=== PATIENT | female | born 1945 | race Caucasian/White ===

== ENCOUNTER → 2016-10-21 | Outpatient (CLI) | payer MEDICARE ==
--- NOTE | 2016-10-23 08:04 | MM ---
Reason for exam: screening (asymptomatic). Last mammogram was performed 1 year ago. History: Patient is postmenopausal. Family history of premenopausal breast cancer in sister. Benign cyst aspiration, March 15, 1997. Physical Findings: A clinical breast exam by your physician is recommended on an annual basis and results should be correlated with mammographic findings. MG 3D Screening Mammo W/Cad Bilateral CC and MLO view(s) were taken. Prior study comparison: October 19, 2015, bilateral MG screening mammo w CAD. October 17, 2014, bilateral MG screening mammo w CAD. October 04, 2013, bilateral digital screening mammo w/CAD. The breast tissue is heterogeneously dense. This may lower the sensitivity of mammography. There is chronic nodularity in the left breast. No significant changes when compared with prior studies. ASSESSMENT: Negative, BI-RAD 1 RECOMMENDATION: Routine screening mammogram of both breasts in 1 year.
== END | disposition home or self-care (01) ==
LOC: RADMAMWWP 06:59
PROVIDERS: ATTEND Internal Medicine
DX: Z12.31 Encounter for screening mammogram for malignant neoplasm of breast (principal)
CPT/HCPCS: 77063; G0202

== ENCOUNTER → 2017-09-05 | Outpatient (CLI) | payer MEDICARE ==
--- NOTE | 2017-09-05 08:04 | US ---
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 GLAND SIZE: Right Lobe: 4.6 x 2.3 x 2.2 cm Overall Parenchyma: homogenous Left Lobe: Surgically absent Isthmus Thickness: 0.2 cm NODULES RIGHT: # of nodules measured on right: 2 1. 1.7 X 1.9 x 1.8 cm hypoechoic mixed nodule at the mid pole with well-defined margins; . This no dule is wider than tall and shows intranodular vascularity. Prior size: 2.9 x 1.9 x 2.1 cm 2. 1.3 X 0.7 x 0.7 cm hypoechoic cystic nodule at the lower pole with well-defined margins; . This nodule is wider than tall and shows no intranodular vascularity. Prior size: No previous LEFT: # of nodules measured on left: 0 ISTHMUS: # of nodules measured in the isthmus: 0 Bilateral neck scanned, no evidence of lymphadenopathy. IMPRESSION: Nonspecific nodularity right thyroid lobe. New nodule lower pole as discussed above.
== END | disposition home or self-care (01) ==
LOC: RADUSWWP 07:27
PROVIDERS: ATTEND Internal Medicine
DX: E04.1 Nontoxic single thyroid nodule (principal)
CPT/HCPCS: 76536

== ENCOUNTER → 2017-10-22 | Outpatient (CLI) | payer MEDICARE ==
--- NOTE | 2017-10-22 19:02 | BD ---
EXAMINATION TYPE: MG DEXA axial skeleton. DATE OF EXAM: 10/22/2017 CLINICAL HISTORY: 72-year-old female osteoporosis Height: 63.25 Weight: 203 FRAX RISK QUESTIONS: Alcohol (3 or more units per day): no Family History (Parent hip fracture): yes, mother Glucocorticoids (More than 3mos): no (Ex: prednisone, prednisolone, methylprednisolone, dexamethasone, and hydrocortisone). History of Fracture in Adulthood: no Secondary Osteoporosis: 1. Type 1 Diabetes: no 2. Hyperthyroidism: no 3. Menopause before 45: no 4. Malnutrition: no 5. Chronic liver disease: no Rheumatoid Arthritis: no Current Tobacco Use: no RISK FACTORS HISTORY OF: Family History of Osteoporosis: no Active: no Diet low in dairy products/other sources of calcium: several servings a week Postmenopausal woman: yes Take estrogen and/or progesterone medications: no Lost more than 2 inches in height since high school: yes Frequent falls: no Poor Health: no Hyperparathyroidism: no Adrenal Insufficiency: no MEDICATIONS: Prednisone or other steroids: no Thyroid Medications: no Osteoporosis Medications: no Additional Medications: blood pressure meds Additional History: EXAM MEASUREMENTS: Bone mineral densitometry was performed using the [employer] System. Bone mineral density as measured about the Lumbar spine is: ----- L1-L4(G/cm2): 1.354 T Score Values are as follows: ----- L2: 0.7 ----- L3: 1.9 ----- L4: 2.7 ----- L1-L4: 1.5 Bone mineral density has: Increased 2.9% since study of: 10/19/2015 Bone mineral density about the R hip (g/cm2): 0.919 Bone mineral density about the L hip (g/cm2): 0.886 T Score values are as follows: -----R Neck: -0.9 -----L Neck: -1.1 -----R Total: 0.1 -----L Total: -1.1 Bone mineral density has: Decreased -1.3% since study of: 10/19/2015 IMPRESSION: Osteopenia (T Score between -2.5 and -1). There is slightly increased risk of fracture and the patient may be considered for treatment. Re-Screen 2-5 years. NOTE: T-SCORE=SD OF THE YOUNG ADULT MEAN.
--- NOTE | 2017-10-23 10:58 | MM ---
Reason for exam: screening (asymptomatic). Last mammogram was performed 1 year ago. History: Patient is postmenopausal. Family history of premenopausal breast cancer in sister. Benign cyst aspiration, March 15, 1997. Physical Findings: A clinical breast exam by your physician is recommended on an annual basis and results should be correlated with mammographic findings. MG 3D Screening Mammo W/Cad Bilateral CC and MLO view(s) were taken. Prior study comparison: October 21, 2016, bilateral MG 3d screening mammo w/cad. October 19, 2015, bilateral MG screening mammo w CAD. The breast tissue is extremely dense which could obscure a lesion on mammography. Finding: There are typically benign calcifications in both breasts. No significant changes in finding since October 21, 2016 and October 19, 2015. ASSESSMENT: Benign, BI-RAD 2 RECOMMENDATION: Routine screening mammogram of both breasts in 1 year.
== END | disposition home or self-care (01) ==
LOC: RADMAMWWP 06:56
PROVIDERS: ATTEND Internal Medicine
DX: Z12.31 Encounter for screening mammogram for malignant neoplasm of breast (principal); M81.0 Age-related osteoporosis without current pathological fracture; M85.80 Other specified disorders of bone density and structure, unspecified site
CPT/HCPCS: 77063; 77067; 77080

== ENCOUNTER 2018-04-15 18:00 | Inpatient (IN) | payer MEDICARE ==
--- NOTE | 2018-04-15 18:21 | ED ---
General Adult HPI - General Source: patient Mode of arrival: wheelchair Limitations: no limitations <Skip Garrison - Last Filed: 04/16/18 04:45> <Shahid Ricketts - Last Filed: 04/18/18 19:50> - General Chief complaint: Extremity Problem,Nontraumatic Stated complaint: gout Time Seen by Provider: 04/15/18 18:16 - History of Present Illness Initial comments: 73-year-old female with a past medical history of hypertension and gout presents to the emergency department for multiple complaints. Patient states she has gout in her bilateral first toes times 9 days. Patient states she saw her primary care provider yesterday who prescribed her colchicine. Patient states she does have a history of gout and takes allopurinol at home. Patient' s family member states that the patient has been very weak times one day. She states she has vomited twice in the past day. She states she has not been eating and believes this is why the patient is weak. Patient denies chest pain or shortness of breath. Patient's family member states she did check her temperature at home and she had a 101.6 temperature at home. Patient was not given anything for the fever. Patient has no other complaints at this time including shortness of breath, chest pain, abdominal pain, headache, or visual changes. (Skip Garrison) - Related Data Home Medications Medication Instructions Recorded Confirmed Allopurinol [Zyloprim] 100 mg PO DAILY 04/15/18 04/15/18 Bisoprolol-Hctz 10-6.25 mg [Ziac 1 tab PO DAILY 04/15/18 04/15/18 10-6.25 MG] Colchicine [Colcrys] See Taper PO DAILY 04/15/18 04/15/18 Losartan Potassium 100 mg PO DAILY 04/15/18 04/15/18 Previous Rx's Medication Instructions Recorded predniSONE 20 mg PO BID #10 tab 04/17/18 Allergies Allergy/AdvReac Type Severity Reaction Status Date / Time No Known Allergies Allergy Verified 04/15/18 22:56 Review of Systems ROS Other: All systems not noted in ROS Statement are negative. <Skip Garrison - Last Filed: 04/16/18 04:45> ROS Other: All systems not noted in ROS Statement are negative. <Shahid Ricketts - Last Filed: 04/18/18 19:50> ROS Statement: Those systems with pertinent positive or pertinent negative responses have been documented in the HPI. Past Medical History Past Medical History: Hypertension Additional Past Medical History / Comment(s): gout History of Any Multi-Drug Resistant Organisms: None Reported Past Surgical History: No Surgical Hx Reported Past Psychological History: No Psychological Hx Reported Smoking Status: Never smoker Past Alcohol Use History: None Reported Past Drug Use History: None Reported <Skip Garrison - Last Filed: 04/16/18 04:45> - Past Family History Father Family Medical History: No Reported History ( in a house fire) Mother Family Medical History: CVA/TIA Sister(s) History Unknown: Yes Family Medical History: Cancer (Breast cancer), Diabetes Mellitus, Hypertension Daughter(s) Family Medical History: No Reported History Son(s) Family Medical History: No Reported History <Shahid Ricketts - Last Filed: 04/18/18 19:50> General Exam Limitations: no limitations General appearance: alert, in no apparent distress Head exam: Present: atraumatic, normocephalic, normal inspection Eye exam: Present: normal appearance, PERRL, EOMI. Absent: scleral icterus, conjunctival injection, periorbital swelling ENT exam: Present: normal exam, mucous membranes moist Neck exam: Present: normal inspection, full ROM. Absent: tenderness, meningismus, lymphadenopathy Respiratory exam: Present: normal lung sounds bilaterally. Absent: respiratory distress, wheezes, rales, rhonchi, stridor Cardiovascular Exam: Present: regular rate, normal rhythm, normal heart sounds. Absent: systolic murmur, diastolic murmur, rubs, gallop, clicks GI/Abdominal exam: Present: soft, normal bowel sounds. Absent: distended, tenderness, guarding, rebound, rigid Extremities exam: Present: normal capillary refill (Refill less than 2 seconds in the lower extremities bilaterally), other (Erythema and swelling noted in bilateral first toes. Warmth and erythema is increased in the left first toe compared to the right. Patient does admit that pain is worse in the left toe. No spreading redness up the leg. No cellulitic changes. No signs of abscess or defect in the skin.) Neurological exam: Present: alert, oriented X3, CN II-XII intact Psychiatric exam: Present: normal affect, normal mood <Skip Garrison - Last Filed: 04/16/18 04:45> Vital Signs 04/15/18 04/15/18 04/15/18 18:01 18:59 20:37 Temperature 98.7 F 100.9 F H Pulse Rate 94 75 Respiratory 18 18 Rate Blood Pressure 121/64 130/61 O2 Sat by Pulse 95 93 L Oximetry 04/15/18 04/15/18 21:40 23:33 Temperature 98.2 F 97.5 F L Pulse Rate 79 69 Respiratory 18 18 Rate Blood Pressure 124/61 137/75 O2 Sat by Pulse 93 L 96 Oximetry Medical Decision Making - Lab Data Result diagrams: 04/15/18 19:13 04/15/18 19:13 <Skip Garrison - Last Filed: 04/16/18 04:45> - Lab Data Result diagrams: 04/17/18 07:05 04/17/18 07:05 <Shahid Ricketts - Last Filed: 04/18/18 19:50> - Medical Decision Making 73-year-old female presents to the emergency department for a chief complaint of bilateral first toe pain 9 days. Patient has history of gout. Patient has felt very weak for the past day as well as nauseous because of the pain. She has not been eating and feeling member believes this is contributing to her weakness. Patient has a low-grade fever of 100.9 here in the emergency department. Vitals are otherwise stable. On exam patient does have edema noted of both MTP joints. There is erythema noted of the left MTP joint which is likely related to gout but could be cellulitic in nature. CBC shows a white count of 20 which could be reactive. CMP unremarkable. Bilirubin 2.9, patient denies any abdominal pain and does not have any abdominal tenderness on exam. Troponin negative. Urine was cultured. At this time given the patient's white count as well as weakness she will be treated with Unasyn to cover possible cellulitic infection of the left great toe. Patient's daughter is also concerned that she is a fall risk. She is unable to ambulate due to the pain. Patient will be admitted for pain management (Skip Garrison) I saw this patient in conjunction with the physician butcher's assistant. I performed independent history and physical exam. Agree with case management. (Shahid Ricketts) - Lab Data Lab Results 04/15/18 04/15/18 04/15/18 Range/Units 19:13 19:13 19:13 WBC 20.5 H (3.8-10.6) k/uL RBC 5.04 (3.80-5.40) m/uL Hgb 14.7 (11.4-16.0) gm/dL Hct 46.2 H (34.0-46.0) % MCV 91.6 (80.0-100.0) fL MCH 29.2 (25.0-35.0) pg MCHC 31.8 (31.0-37.0) g/dL RDW 12.9 (11.5-15.5) % Plt Count 343 (150-450) k/uL Neutrophils % 85 % Lymphocytes % 7 % Monocytes % 6 % Eosinophils % 0 % Basophils % 0 % Neutrophils # 17.5 H (1.3-7.7) k/uL Lymphocytes # 1.4 (1.0-4.8) k/uL Monocytes # 1.2 H (0-1.0) k/uL Eosinophils # 0.1 (0-0.7) k/uL Basophils # 0.1 (0-0.2) k/uL PT (9.0-12.0) sec INR (<1.2) APTT (22.0-30.0) sec Sodium 137 (137-145) mmol/L Potassium 4.4 (3.5-5.1) mmol/L Chloride 100 (98-107) mmol/L Carbon Dioxide 27 (22-30) mmol/L Anion Gap 10 mmol/L BUN 18 H (7-17) mg/dL Creatinine 0.93 (0.52-1.04) mg/dL Est GFR (CKD-EPI)AfAm 71 (>60 ml/min/1.73 sqM) Est GFR (CKD-EPI)NonAf 62 (>60 ml/min/1.73 sqM) Glucose 129 H (74-99) mg/dL Uric Acid 7.2 (3.7-7.4) mg/dL Calcium 9.4 (8.4-10.2) mg/dL Magnesium 2.1 (1.6-2.3) mg/dL Total Bilirubin 2.9 H (0.2-1.3) mg/dL AST 66 H (14-36) U/L ALT 53 H (9-52) U/L Alkaline Phosphatase 82 (38-126) U/L Total Creatine Kinase 166 H (30-135) U/L CK-MB (CK-2) 3.5 H (0.0-2.4) ng/mL CK-MB (CK-2) Rel Index 2.1 Troponin I <0.012 (0.000-0.034) ng/mL Total Protein 7.1 (6.3-8.2) g/dL Albumin 3.7 (3.5-5.0) g/dL Urine Color Urine Appearance (Clear) Urine pH (5.0-8.0) Ur Specific Mather (1.001-1.035) Urine Protein (Negative) Urine Glucose (UA) (Negative) Urine Ketones (Negative) Urine Blood (Negative) Urine Nitrite (Negative) Urine Bilirubin (Negative) Urine Urobilinogen (<2.0) mg/dL Ur Leukocyte Esterase (Negative) Urine RBC (0-5) /hpf Urine WBC (0-5) /hpf Ur Squamous Epith Cells (0-4) /hpf Urine Bacteria (None) /hpf Granular Casts (0) /lpf Urine Mucus (None) /hpf Influenza Type A RNA (Not Detectd) Influenza Type B (PCR) (Not Detectd) 04/15/18 04/15/18 04/15/18 Range/Units 19:13 20:27 20:31 WBC (3.8-10.6) k/uL RBC (3.80-5.40) m/uL Hgb (11.4-16.0) gm/dL Hct (34.0-46.0) % MCV (80.0-100.0) fL MCH (25.0-35.0) pg MCHC (31.0-37.0) g/dL RDW (11.5-15.5) % Plt Count (150-450) k/uL Neutrophils % % Lymphocytes % % Monocytes % % Eosinophils % % Basophils % % Neutrophils # (1.3-7.7) k/uL Lymphocytes # (1.0-4.8) k/uL Monocytes # (0-1.0) k/uL Eosinophils # (0-0.7) k/uL Basophils # (0-0.2) k/uL PT 10.9 (9.0-12.0) sec INR 1.1 (<1.2) APTT 25.2 (22.0-30.0) sec Sodium (137-145) mmol/L Potassium (3.5-5.1) mmol/L Chloride (98-107) mmol/L Carbon Dioxide (22-30) mmol/L Anion Gap mmol/L BUN (7-17) mg/dL Creatinine (0.52-1.04) mg/dL Est GFR (CKD-EPI)AfAm (>60 ml/min/1.73 sqM) Est GFR (CKD-EPI)NonAf (>60 ml/min/1.73 sqM) Glucose (74-99) mg/dL Uric Acid (3.7-7.4) mg/dL Calcium (8.4-10.2) mg/dL Magnesium (1.6-2.3) mg/dL Total Bilirubin (0.2-1.3) mg/dL AST (14-36) U/L ALT (9-52) U/L Alkaline Phosphatase (38-126) U/L Total Creatine Kinase (30-135) U/L CK-MB (CK-2) (0.0-2.4) ng/mL CK-MB (CK-2) Rel Index Troponin I (0.000-0.034) ng/mL Total Protein (6.3-8.2) g/dL Albumin (3.5-5.0) g/dL Urine Color Yellow Urine Appearance Cloudy H (Clear) Urine pH 5.5 (5.0-8.0) Ur Specific Mather 1.029 (1.001-1.035) Urine Protein 1+ H (Negative) Urine Glucose (UA) Negative (Negative) Urine Ketones 1+ H (Negative) Urine Blood Small H (Negative) Urine Nitrite Negative (Negative) Urine Bilirubin 1+ H (Negative) Urine Urobilinogen 2.0 (<2.0) mg/dL Ur Leukocyte Esterase Moderate H (Negative) Urine RBC 4 (0-5) /hpf Urine WBC 29 H (0-5) /hpf Ur Squamous Epith Cells 2 (0-4) /hpf Urine Bacteria Occasional H (None) /hpf Granular Casts 14 (0) /lpf Urine Mucus Many H (None) /hpf Influenza Type A RNA Not Detected (Not Detectd) Influenza Type B (PCR) Not Detected (Not Detectd) Disposition Is patient prescribed a controlled substance at d/c from ED?: No Time of Disposition: 23:35 <Skip Garrison - Last Filed: 04/16/18 04:45> <Shahid Ricketts - Last Filed: 04/18/18 19:50> Clinical Impression: Gout, Risk for falls, Leukocytosis Disposition: ADMITTED IP TO THIS HOSP Condition: Good Addendum entered and electronically signed by Skip Garrison PA-C 04/16/18 04 :53: EKG shows a normal sinus rhythm, ventricular rate 82, NV interval 154, QRS duration 74, no evidence of ST elevation or depression
[2018-04-15] MEDS ORDERED: SODIUM CHLORIDE 0.9% 1,000 ML IV STA (18:34)
[2018-04-15] MEDS ORDERED: ONDANSETRON 4 MG/2 ML VIAL IVP STA (18:34)
[2018-04-15] MEDS ORDERED: KETOROLAC 30 MG/ML 1 ML VIAL IVP STA (18:34)
[2018-04-15] MEDS ORDERED: AMPICILLIN-SULBACTAM 3 GM in SODIUM CHLORIDE 0.9% 100 ML IVPB STA (18:38)
[2018-04-15 19:26] LABS: Basophils # (A) 0.1 k/uL (0-0.2); Basophils % (A) 0 %; Eosinophils # (A) 0.1 k/uL (0-0.7); Eosinophils % (A) 0 %; HCT 46.2 % (34.0-46.0); HGB 14.7 gm/dL (11.4-16.0); Lymphocytes # (A) 1.4 k/uL (1.0-4.8); Lymphocytes % (A) 7 %; MCH 29.2 pg (25.0-35.0); MCHC 31.8 g/dL (31.0-37.0); MCV 91.6 fL (80.0-100.0); Mean Platelet Volume 6.9; Monocytes # (A) 1.2 k/uL (0-1.0); Monocytes % (A) 6 %; Neutrophils # (A) 17.5 k/uL (1.3-7.7); Neutrophils % (A) 85 %; Platelet Count 343 k/uL (150-450); RBC 5.04 m/uL (3.80-5.40); RDW 12.9 % (11.5-15.5); WBC 20.5 k/uL (3.8-10.6)
[2018-04-15 19:36] LABS: Albumin 3.7 g/dL (3.5-5.0); Calcium 9.4 mg/dL (8.4-10.2); Magnesium 2.1 mg/dL (1.6-2.3); Potassium 4.4 mmol/L (3.5-5.1); Total Bilirubin 2.9 mg/dL (0.2-1.3); Total Protein 7.1 g/dL (6.3-8.2); Uric Acid 7.2 mg/dL (3.7-7.4)
[2018-04-15 19:39] LABS: Creatine Kinase 166 U/L (30-135)
--- NOTE | 2018-04-15 19:49 | XR ---
EXAMINATION TYPE: XR chest 2V DATE OF EXAM: 04/15/2018 COMPARISON: NONE HISTORY: Weakness TECHNIQUE: Frontal and lateral views of the chest are obtained. FINDINGS: There is no heart failure nor confluent pneumonic infiltrate. Costophrenic angles are darleen r. Heart and mediastinum are normal. Bony thorax appears intact. IMPRESSION: No cardiopulmonary disease.
[2018-04-15 19:51] LABS: Creatine Kinase MB 3.5 ng/mL (0.0-2.4); Troponin I <0.012 ng/mL (0.000-0.034)
[2018-04-15 20:15] LABS: INR 1.1 (<1.2); Partial Thromboplastin Time 25.2 sec (22.0-30.0); Prothrombin Time 10.9 sec (9.0-12.0)
[2018-04-15 20:50] LABS: Appearance,Urine Cloudy (Clear); Bacteria,Urine Occasional /hpf; Bilirubin,Urine 1+ (Negative); Blood,Urine Small (Negative); Color,Urine Yellow; Glucose,Urine (UA) Negative (Negative); Granular Casts,Urine 14 /lpf (0); Ketones,Urine 1+ (Negative); Leukocyte Esterase,Urine Moderate (Negative); Mucus,Urine Many /hpf; Nitrite,Urine Negative (Negative); PH, Urine 5.5 (5.0-8.0); Protein,Urine 1+ (Negative); RBC,Urine 4 /hpf (0-5); Specific Gravity,Urine 1.029 (1.001-1.035); Squamous Epithelial Cell,Urine 2 /hpf (0-4); WBC,Urine 29 /hpf (0-5)
[2018-04-15] MEDS ORDERED: NALOXONE 0.4 MG/ML 1 ML VIAL IV PRN (22:21)
[2018-04-15] MEDS ORDERED: ONDANSETRON 4 MG/2 ML VIAL IVP PRN (22:21)
[2018-04-15] MEDS ORDERED: ACETAMINOPHEN TAB 325 MG TAB PO PRN (22:21)
[2018-04-15] MEDS ORDERED: MORPHINE SULFATE 4 MG/ML SYRINGE IV PRN (22:21)
[2018-04-15] MEDS ORDERED: ACETAMINOPHEN IV (For NPO) 500 MG in EMPTY BAG 1 BAG IVPB PRN (23:33)
[2018-04-16] MEDS: SODIUM CHLORIDE 0.9% 1,000 ML IV SCH ×2 (01:50→12:03)
[2018-04-16] MEDS: AMPICILLIN-SULBACTAM 1.5 GM in SODIUM CHLORIDE 0.9% 50 ML IVPB SCH ×2 (05:03→12:03)
--- NOTE | 2018-04-16 15:47 | P.HPIM ---
History of Present Illness H&P Date: 04/16/18 Chief Complaint: Fever and weakness. Foot pain Pain redness This is a pleasant 73-year-old female patient of Dr. marilyn oakes. He has underlying history of hypertension gout nontoxic goiter, diverticular disease, also arthritis, impaired fasting sugars, hyperlipidemia admitted to the hospital secondary to foot pain, and fever. Patient has not been well for about 2 weeks when she talked her flap gout had flareup, left first and then right side, patient is seen in the office on 06/14/2018, and was started on colchicine 0.6 3 times a day, allopurinol was restarted. Patient was instructed to stop hydrochlorothiazide, Bystolic HCTZ discontinued as it did contain the hydrochlorothiazide. Patient now comes in with a fever for one 01.9 , patient did not receive any steroids, no diarrhea no nausea no vomiting, patient has slight dysuria, dark urine, has bilateral foot swelling, no skin sores, no pulmonary complaints. Patient was seen in emergency roomAnd has the following findings WBC of 20.5, uric acid of 7.2, creatinine of 0.9, liver function test was slightly elevated with alkaline phosphatase normal, troponins negative at 0.012, urinalysis showed urine WBC of 29, cloudy urine, mild protein, mild ketones IV antibiotic was started for the urinary tract infection, also with superficial inflammation in the left foot joint, doubt cellulitis at this time patient was admitted for SIRS, dehydration, and urinary tract infection Review of Systems Constitutional: Reports as per HPI, Denies anorexia, Denies chills, Denies chronic headaches, Denies chronic pain, Denies daytime sleepiness, Denies fatigue, Denies fever, Denies lethargy, Denies malaise, Denies night sweats, Denies poor appetite, Denies sweats, Denies weakness, Denies weight gain, Denies weight loss Ears, nose, mouth and throat: Reports as per HPI, Denies ant. neck pain, Denies bleeding gums, Denies dental pain, Denies dysphagia, Denies epistaxis, Denies headache, Denies hoarseness, Denies mouth pain, Denies nasal congestion, Denies nasal discharge, Denies neck fullness/pressure, Denies neck lump, Denies nose pain, Denies odynophagia, Denies post-nasal drip, Denies sinus pain, Denies sinus pressure, Denies swelling in mouth, Denies swelling in throat, Denies sore throat, Denies vertigo, Denies voice changes Cardiovascular: Reports as per HPI, Denies chest pain, Denies claudication, Denies decreased exercise tolerance, Denies dyspnea on exertion, Denies edema, Denies high blood pressure, Denies irregular heart beat, Denies leg edema, Denies lightheadedness, Denies orthopnea, Denies palpitations, Denies paroxysmal nocturnal dyspnea, Denies phlebitis, Denies rapid heart beat, Denies shortness of breath, Denies syncope Respiratory: Reports as per HPI Gastrointestinal: Reports as per HPI, Denies abdominal pain, Denies belching, Denies bloating, Denies BRBPR, Denies change in bowel habits, Denies coffee ground emesis, Denies constipation, Denies diarrhea, Denies dyspepsia, Denies early satiety, Denies excessive gas, Denies heartburn, Denies hematemesis, Denies hematochezia, Denies indigestion, Denies jaundice, Denies lactose intolerance, Denies loss of appetite, Denies melena, Denies vomiting Genitourinary: Reports as per HPI, Reports dysuria, Reports mixed incontinence, Reports urinary frequency, Denies abnormal vaginal bleeding, Denies decreased libido, Denies difficulty conceiving, Denies difficulty voiding, Denies dysmenorrhea, Denies dyspareunia, Denies flank pain, Denies genital sores, Denies hematuria, Denies hot flashes, Denies incomplete emptying, Denies kidney stones, Denies menorrhagia, Denies nocturia, Denies pelvic pain, Denies post void dribbling, Denies , Denies prolapse symptoms, Denies stress incontinence, Denies urge incontinence, Denies urgency, Denies vaginal discharge , Denies vaginal dryness, Denies vaginal itching, Denies vaginal odor Menstruation: Reports as per HPI, Reports postmenopausal Past Medical History Past Medical History: Hypertension Additional Past Medical History / Comment(s): gout History of Any Multi-Drug Resistant Organisms: None Reported Past Surgical History: No Surgical Hx Reported Past Psychological History: No Psychological Hx Reported Smoking Status: Never smoker Past Alcohol Use History: None Reported Past Drug Use History: None Reported - Past Family History Father Family Medical History: No Reported History ( in a house fire) Mother Family Medical History: CVA/TIA Sister(s) History Unknown: Yes Family Medical History: Cancer (Breast cancer), Diabetes Mellitus, Hypertension Daughter(s) Family Medical History: No Reported History Son(s) Family Medical History: No Reported History Medications and Allergies Home Medications Medication Instructions Recorded Confirmed Type Allopurinol [Zyloprim] 100 mg PO DAILY 04/15/18 04/15/18 History Bisoprolol-Hctz 10-6.25 mg [Ziac 1 tab PO DAILY 04/15/18 04/15/18 History 10-6.25] Colchicine [Colcrys] See Taper PO DAILY 04/15/18 04/15/18 History Losartan Potassium 100 mg PO DAILY 04/15/18 04/15/18 History Allergies Allergy/AdvReac Type Severity Reaction Status Date / Time No Known Allergies Allergy Verified 04/15/18 22:56 Physical Exam Vitals: Vital Signs Temp Pulse Pulse Resp BP BP Pulse Ox 04/16/18 07:45 96.8 F L 95 18 119/51 95 04/16/18 07:00 99.1 F 78 18 118/66 94 L 04/16/18 05:05 98.4 F 04/16/18 00:30 98.4 F 75 18 133/64 96 04/15/18 23:33 97.5 F L 69 18 137/75 96 04/15/18 21:40 98.2 F 79 18 124/61 93 L 04/15/18 20:37 75 18 130/61 93 L 04/15/18 18:59 100.9 F H 04/15/18 18:01 98.7 F 94 18 121/64 95 Intake and Output 04/16/18 04/16/18 04/16/18 06:59 14:59 22:59 Intake Total 250 Balance 250 Intake: Oral 250 Other: Voiding Method Toilet # Voids 1 Weight 94.347 kg - Constitutional General appearance: cooperative, no acute distress - EENT Eyes: anicteric sclerae, EOMI, PERRLA, dentition normal, normal appearance ENT: NA/AT, normal oropharynx - Neck Neck: normal ROM - Respiratory Respiratory: bilateral: CTA, negative: diminished, dullness, rales - Cardiovascular Rhythm: regular Heart sounds: normal: S1, S2 Abnormal Heart Sounds: no systolic murmur, no diastolic murmur, no rub, no S3 Gallop, no S4 Gallop, no click, no other - Gastrointestinal General gastrointestinal: no absent bowel sounds, no decreased bowel sounds, no distended, no hepatomegaly, no hyperactive bowel sounds, normal bowel sounds, no organomegaly, no rigid, scaphoid, soft, no splenomegaly, no tenderness, no umbilical hernia, no ventral hernia - Integumentary Integumentary: calor, cellulitis (Redness left first metatarsal phalangeal joint ), normal, normal turgor - Neurologic Neurologic: CNII-XII intact - Musculoskeletal Musculoskeletal: gait normal, strength equal bilaterally - Psychiatric Psychiatric: A&O x's 3, appropriate affect, intact judgment & insight Results CBC & Chem 7: 04/15/18 19:13 04/15/18 19:13 Labs: Abnormal Lab Results - Last 24 Hours (Table) 04/15/18 04/15/18 04/15/18 Range/Units 19:13 19:13 19:13 WBC 20.5 H (3.8-10.6) k/uL Hct 46.2 H (34.0-46.0) % Neutrophils # 17.5 H (1.3-7.7) k/uL Monocytes # 1.2 H (0-1.0) k/uL BUN 18 H (7-17) mg/dL Glucose 129 H (74-99) mg/dL Total Bilirubin 2.9 H (0.2-1.3) mg/dL AST 66 H (14-36) U/L ALT 53 H (9-52) U/L Total Creatine Kinase 166 H (30-135) U/L CK-MB (CK-2) 3.5 H (0.0-2.4) ng/mL Urine Appearance (Clear) Urine Protein (Negative) Urine Ketones (Negative) Urine Blood (Negative) Urine Bilirubin (Negative) Ur Leukocyte Esterase (Negative) Urine WBC (0-5) /hpf Urine Bacteria (None) /hpf Urine Mucus (None) /hpf 04/15/18 Range/Units 20:27 WBC (3.8-10.6) k/uL Hct (34.0-46.0) % Neutrophils # (1.3-7.7) k/uL Monocytes # (0-1.0) k/uL BUN (7-17) mg/dL Glucose (74-99) mg/dL Total Bilirubin (0.2-1.3) mg/dL AST (14-36) U/L ALT (9-52) U/L Total Creatine Kinase (30-135) U/L CK-MB (CK-2) (0.0-2.4) ng/mL Urine Appearance Cloudy H (Clear) Urine Protein 1+ H (Negative) Urine Ketones 1+ H (Negative) Urine Blood Small H (Negative) Urine Bilirubin 1+ H (Negative) Ur Leukocyte Esterase Moderate H (Negative) Urine WBC 29 H (0-5) /hpf Urine Bacteria Occasional H (None) /hpf Urine Mucus Many H (None) /hpf Microbiology - Last 24 Hours (Table) 04/15/18 20:27 Urine Culture - Preliminary Urine,Voided Laboratory Results WBC 20.5 k/uL (3.8-10.6) H 04/15/18 19:13 RBC 5.04 m/uL (3.80-5.40) 04/15/18 19:13 Hgb 14.7 gm/dL (11.4-16.0) 04/15/18 19:13 Hct 46.2 % (34.0-46.0) H 04/15/18 19:13 MCV 91.6 fL (80.0-100.0) 04/15/18 19:13 MCH 29.2 pg (25.0-35.0) 04/15/18 19:13 MCHC 31.8 g/dL (31.0-37.0) 04/15/18 19:13 RDW 12.9 % (11.5-15.5) 04/15/18 19:13 Plt Count 343 k/uL (150-450) 04/15/18 19:13 Neutrophils % 85 % 04/15/18 19:13 Lymphocytes % 7 % 04/15/18 19:13 Monocytes % 6 % 04/15/18 19:13 Eosinophils % 0 % 04/15/18 19:13 Basophils % 0 % 04/15/18 19:13 Neutrophils # 17.5 k/uL (1.3-7.7) H 04/15/18 19:13 Lymphocytes # 1.4 k/uL (1.0-4.8) 04/15/18 19:13 Monocytes # 1.2 k/uL (0-1.0) H 04/15/18 19:13 Eosinophils # 0.1 k/uL (0-0.7) 04/15/18 19:13 Basophils # 0.1 k/uL (0-0.2) 04/15/18 19:13 PT 10.9 sec (9.0-12.0) 04/15/18 19:13 INR 1.1 (<1.2) 04/15/18 19:13 APTT 25.2 sec (22.0-30.0) 04/15/18 19:13 Sodium 137 mmol/L (137-145) 04/15/18 19:13 Potassium 4.4 mmol/L (3.5-5.1) 04/15/18 19:13 Chloride 100 mmol/L (98-107) 04/15/18 19:13 Carbon Dioxide 27 mmol/L (22-30) 04/15/18 19:13 Anion Gap 10 mmol/L 04/15/18 19:13 BUN 18 mg/dL (7-17) H 04/15/18 19:13 Creatinine 0.93 mg/dL (0.52-1.04) 04/15/18 19:13 Est GFR (CKD-EPI)AfAm 71 (>60 ml/min/1.73 sqM) 04/15/18 19:13 Est GFR (CKD-EPI)NonAf 62 (>60 ml/min/1.73 sqM) 04/15/18 19:13 Glucose 129 mg/dL (74-99) H 04/15/18 19:13 Uric Acid 7.2 mg/dL (3.7-7.4) 04/15/18 19:13 Calcium 9.4 mg/dL (8.4-10.2) 04/15/18 19:13 Magnesium 2.1 mg/dL (1.6-2.3) 04/15/18 19:13 Total Bilirubin 2.9 mg/dL (0.2-1.3) H 04/15/18 19:13 AST 66 U/L (14-36) H 04/15/18 19:13 ALT 53 U/L (9-52) H 04/15/18 19:13 Alkaline Phosphatase 82 U/L (38-126) 04/15/18 19:13 Total Creatine Kinase 166 U/L (30-135) H 04/15/18 19:13 CK-MB (CK-2) 3.5 ng/mL (0.0-2.4) H 04/15/18 19:13 CK-MB (CK-2) Rel Index 2.1 04/15/18 19:13 Troponin I <0.012 ng/mL (0.000-0.034) 04/15/18 19:13 Total Protein 7.1 g/dL (6.3-8.2) 04/15/18 19:13 Albumin 3.7 g/dL (3.5-5.0) 04/15/18 19:13 Urine Color Yellow 04/15/18 20: Urine Appearance Cloudy (Clear) H 04/15/18 20: Urine pH 5.5 (5.0-8.0) 04/15/18 20: Ur Specific Cartwright 1.029 (1.001-1.035) 04/15/18: Urine Protein 1+ (Negative) H 04/15/18 20: Urine Glucose (UA) Negative (Negative) 04/15/18 20: Urine Ketones 1+ (Negative) H 04/15/18: Urine Blood Small (Negative) H 04/15/18: Urine Nitrite Negative (Negative) 04/15/18 20: Urine Bilirubin 1+ (Negative) H 04/15/18 20: Urine Urobilinogen 2.0 mg/dL (<2.0) 04/15/18 20: Ur Leukocyte Esterase Moderate (Negative) H 04/15/18 20: Urine RBC 4 /hpf (0-5) 04/15/18 20: Urine WBC 29 /hpf (0-5) H 04/15/18: Ur Squamous Epith Cells 2 /hpf (0-4) 04/15/18 20: Urine Bacteria Occasional /hpf (None) H 04/15/18 20: Granular Casts 14 /lpf (0) 04/15/18 20: Urine Mucus Many /hpf (None) H 04/15/18 20: Influenza Type A RNA Not Detected (Not Detectd) 04/15/18:31 Influenza Type B (PCR) Not Detected (Not Detectd) 04/15/18 20:31 Thrombosis Risk Factor Assmnt - DVT/VTE Prophylaxis DVT/VTE Prophylaxis: Low risk, early ambulation encouraged - Choose All That Apply Any of the Below Risk Factors Present?: Yes Each Factor Represents 1 point: Obesity (BMI >25) Each Risk Factor Represents 2 Points: Age 61-74 years Thrombosis Risk Factor Assessment Total Risk Factor Score: 3 Thrombosis Risk Factor Assessment Level: Moderate Risk Assessment and Plan Plan: 1. SIRS with significant leukocytosis, leukemoid reaction, no recent numbers to compare it with, patient also has hyperuricemia, and gout exacerbation flare on the left foot. Patient will be given anti-inflammatories, treat the urinary tract infection that was incidentally found, patient has minimal symptoms only, IV Rocephin, which will be transitioned to oral antibiotic should leukocytosis and fever resolved influenza test by PCR testing is negative 2. Gouty exacerbation, patient will be on colchicine 0.6 mg daily, avoid triggers from dietary restrictions 2 doses of Solu-Medrol, and thereafter will be transitioned to oral anti-inflammatories like NSAIDs 3. Hypertension, patient will be on by systolic 5 mg, discontinue the hydrochlorothiazide component, as it does flareup gout 4. Elevated liver function tests, hepatitis panel to be done 5. nontoxic goiter, stable, followed with outpatient testing GI prophylaxis and DVT prophylaxis low-risk, early ambulation advised 3.
[2018-04-16] MEDS: methylPREDNISolone SOD SUCCI 40 MG/ML 1 ML VIAL IV SCH ×2 (16:26→23:41)
[2018-04-17] MEDS: SODIUM CHLORIDE 0.9% 1,000 ML IV SCH (00:13)
[2018-04-17 07:47] LABS: HCT 45.8 % (34.0-46.0); HGB 14.3 gm/dL (11.4-16.0); MCHC 31.3 g/dL (31.0-37.0); MCV 92.4 fL (80.0-100.0); Mean Platelet Volume 7.3; Platelet Count 325 k/uL (150-450); RBC 4.95 m/uL (3.80-5.40); RDW 12.8 % (11.5-15.5); WBC 13.6 k/uL (3.8-10.6)
[2018-04-17 07:56] VITALS: BP 125/79; PULSE 60; RESP 18; TEMP 97.7
[2018-04-17 08:00] LABS: ALT 52 U/L (9-52); AST 51 U/L (14-36); Albumin 3.1 g/dL (3.5-5.0); Alkaline Phosphatase 75 U/L (38-126); Anion Gap 9 mmol/L; Blood Urea Nitrogen 16 mg/dL (7-17); Calcium 8.9 mg/dL (8.4-10.2); Carbon Dioxide 22 mmol/L (22-30); Chloride 109 mmol/L (98-107); Glucose 120 mg/dL (74-99); Potassium 4.9 mmol/L (3.5-5.1); Sodium 140 mmol/L (137-145); Total Bilirubin 0.9 mg/dL (0.2-1.3); Total Protein 6.3 g/dL (6.3-8.2)
[2018-04-17] MEDS ORDERED: ACETAMINOPHEN TAB 500 MG TAB PO PRN (11:31)
--- NOTE | 2018-04-17 12:22 | US ---
EXAMINATION TYPE: US abdomen complete DATE OF EXAM: 04/17/2018 COMPARISON: CT 08/31/15 CLINICAL HISTORY: elevated liver enzymes, uti r/o hydro. Gout EXAM MEASUREMENTS: Liver Length: 13.1 cm Gallbladder Wall: 0.1 cm CBD: 0.2 cm Spleen: 9.9 cm Right Kidney: 10.6 x 5.5 x 4.8 cm Left Kidney: 10.8 x 4.3 x 3.8 cm Pancreas: Obscured by bowel gas Liver: Partially Obscured by overlying bowel gas and the liver shows a coarse echotexture and is poo rly penetrated by the ultrasound being Gallbladder: wnl Evidence for sonographic Oreilly's sign: No CBD: wnl Spleen: wnl Right Kidney: wnl Left Kidney: Medial, mid hypoechoic area = 0.9 x 0.8 x 0.8 cm Upper IVC: wnl Abd Aorta: wnl Kidneys show normal cortical medullary differentiation. There is no evident ascites. IMPRESSION: Correlate for hepatic steatosis. Probable cortical cyst left kidney. Limited exam.
--- NOTE | 2018-04-17 13:31 | P.DS ---
Providers Date of admission: 04/15/18 22:37 Expected date of discharge: 04/17/18 Attending physician: Greta Pino Primary care physician: Greta Pino [facility] Course: This is a pleasant 73-year-old female patient of Dr. Pino. He has underlying history of hypertension gout nontoxic goiter, diverticular disease, also arthritis, impaired fasting sugars, hyperlipidemia admitted to the hospital secondary to foot pain, and fever. Patient has not been well for about 2 weeks when she talked her flap gout had flareup, left first and then right side, patient is seen in the office on 06/14/2018, and was started on colchicine 0.6 3 times a day, allopurinol was restarted. Patient was instructed to stop hydrochlorothiazide, Bystolic HCTZ discontinued as it did contain the hydrochlorothiazide. Patient now comes in with a fever for one 01.9, patient did not receive any steroids, no diarrhea no nausea no vomiting, patient has slight dysuria, dark urine, has bilateral foot swelling, no skin sores, no pulmonary complaints. Patient was seen in emergency roomAnd has the following findings WBC of 20.5, uric acid of 7.2, creatinine of 0.9, liver function test was slightly elevated with alkaline phosphatase normal, troponins negative at 0.012, urinalysis showed urine WBC of 29, cloudy urine, mild protein, mild ketones IV antibiotic was started for the urinary tract infection, also with superficial inflammation in the left foot joint, doubt cellulitis at this time patient was admitted for SIRS, dehydration, and urinary tract infection 04/17: Abdominal ultrasound showed correlate for hepatic steatosis. Probable cortical cyst left kidney. Liver function tests are improved today with total bilirubin is 0.9, AST 51 and ALT 52. Urine has been finalized with no growth. Patient states she has not had a bowel movement for 2 days but she is not eating very much. She states she is feeling much improved from yesterday. No redness in the foot. Patient will be discharged home today with prednisone and continue colchicine and allopurinol. Patient to avoid nonsteroidal anti- inflammatory drugs while on prednisone. Discharge diagnoses: 1. SIRS secondary to gout, acute exacerbation (UTI ruled out) 2. Gouty exacerbation 3. Hypertension 4. Elevated liver function tests 5. nontoxic goiter, stable Discharge plan: Return home Impression and plan of care have been directed as dictated by the signing physician. Gertrude Man nurse practitioner acting as scribe for signing physician. Patient Condition at Discharge: Good Plan - Discharge Summary New Discharge Prescriptions: New predniSONE 20 mg PO BID #10 tab Continue Colchicine [Colcrys] See Taper PO DAILY Losartan Potassium 100 mg PO DAILY Bisoprolol-Hctz 10-6.25 mg [Ziac 10-6.25 MG] 1 tab PO DAILY Allopurinol [Zyloprim] 100 mg PO DAILY Discharge Medication List Allopurinol [Zyloprim] 100 mg PO DAILY 04/15/18 [History] Bisoprolol-Hctz 10-6.25 mg [Ziac 10-6.25 MG] 1 tab PO DAILY 04/15/18 [History] Colchicine [Colcrys] See Taper PO DAILY 04/15/18 [History] Losartan Potassium 100 mg PO DAILY 04/15/18 [History] predniSONE 20 mg PO BID #10 tab 04/17/18 [Rx] Follow up Appointment(s)/Referral(s): Greta Pino MD [Primary Care Provider] - 1 Week (office will call with appt date and time) Patient Instructions/Handouts: Gout (DC) Activity/Diet/Wound Care/Special Instructions: Activity as tolerated. Regular diet
== END 2018-04-17 13:28 | disposition home or self-care (01) | DRG 554 ==
LOC: EC 18:00 → 4MS4W 22:37
PROVIDERS: ADMIT Internal Medicine; ATTEND Internal Medicine
DX: M10.9 Gout, unspecified (principal); R65.10 Systemic inflammatory response syndrome (SIRS) of non-infectious origin without acute organ dysfunction; E86.0 Dehydration; I10 Essential (primary) hypertension; E78.5 Hyperlipidemia, unspecified; E04.9 Nontoxic goiter, unspecified; R79.89 Other specified abnormal findings of blood chemistry; M19.91 Primary osteoarthritis, unspecified site; Z79.899 Other long term (current) drug therapy; Z87.19 Personal history of other diseases of the digestive system; Z91.81 History of falling; Z82.49 Family history of ischemic heart disease and other diseases of the circulatory system; Z80.3 Family history of malignant neoplasm of breast; Z83.3 Family history of diabetes mellitus; Z82.3 Family history of stroke
CPT/HCPCS: 36415; 71046; 76700; 80053; 81001; 82550; 82553; 83735; 84484; 84550; 85025; 85027; 85610; 85730; 87040; 87086; 87502; 93005; 96361; 96365; 96375; 99284

== ENCOUNTER → 2018-10-23 | Outpatient (CLI) | payer MEDICARE ==
--- NOTE | 2018-10-23 14:54 | MM ---
Reason for exam: screening (asymptomatic). Last mammogram was performed 1 year ago. History: Patient is postmenopausal. Family history of premenopausal breast cancer in sister. Benign cyst aspiration, March 15, 1997. Physical Findings: A clinical breast exam by your physician is recommended on an annual basis and results should be correlated with mammographic findings. MG 3D Screening Mammo W/Cad Bilateral CC and MLO view(s) were taken. Prior study comparison: October 22, 2017, bilateral MG 3d screening mammo w/cad. October 21, 2016, bilateral MG 3d screening mammo w/cad. The breast tissue is heterogeneously dense. This may lower the sensitivity of mammography. There are benign appearing round calcifications bilaterally. There is no discrete abnormality. ASSESSMENT: Benign, BI-RAD 2 RECOMMENDATION: Routine screening mammogram of both breasts in 1 year.
== END ==
LOC: RADMAMWWP 07:25
PROVIDERS: ATTEND Internal Medicine
DX: Z12.31 Encounter for screening mammogram for malignant neoplasm of breast (principal)
CPT/HCPCS: 77063; 77067

== ENCOUNTER → 2019-04-07 | Outpatient (CLI) | payer MEDICARE ==
--- NOTE | 2019-04-07 17:10 | US ---
EXAMINATION TYPE: US carotid duplex BILAT DATE OF EXAM: 04/07/2019 COMPARISON: NONE CLINICAL HISTORY: I65.23 Occlusion and stenosis of bilateral carotid arteries. assess stenosis EXAM MEASUREMENTS: RIGHT: Peak Systolic Velocity (PSV) cm/sec ----- Right CCA: 80.8 ----- Right ICA: 67.9 ----- Right ECA: 71.8 ICA/CCA ratio: 0.8 RIGHT: End Diastole cm/sec ----- Right CCA: 18.0 ----- Right ICA: 13.8 ----- Right ECA: 10.7 LEFT: Peak Systolic Velocity (PSV) cm/sec ----- Left CCA: 74.5 ----- Left ICA: 112.3 ----- Left ECA: 60.3 ICA/CCA ratio: 1.5 LEFT: End Diastole cm/sec ----- Left CCA: 24.7 ----- Left ICA: 43.6 ----- Left ECA: 8.3 VERTEBRALS (direction of flow): Right Vertebral: Antegrade Left Vertebral: Antegrade Rhythm: Normal Mild homogeneous plaque with no significant stenosis seen Grayscale, color Doppler, spectral Doppler imaging performed of the carotid arteries. Waveform analys is shows no significant stenosis of the proximal internal carotid origins. IMPRESSION: No hemodynamic significant stenosis of the proximal internal carotid arteries by Doppler criteria, an indirect measurement of carotid stenosis.
--- NOTE | 2019-04-07 19:49 | ECHOF ---
Referral Reason:I34.0 Nonrheumatic mitral (valve) in MEASUREMENTS -------- HEIGHT: 162.6 cm WEIGHT: 95.3 kg BP: RVIDd: 3.7 cm (< 3.3) IVSd: 0.8 cm (0.6 - 1.1) LVIDd: 5.2 cm (3.9 - 5.3) LVPWd: 1.0 cm (0.6 - 1.1) IVSs: 1.0 cm LVIDs: 3.8 cm LVPWs: 1.2 cm LA Diam: 4.1 cm (2.7 - 3.8) LAESV Index (A-L): 17.61 ml/m Ao Diam: 2.4 cm (2.0 - 3.7) AV Cusp: 1.7 cm (1.5 - 2.6) LA Diam: 4.1 cm (2.7 - 3.8) MV EXCURSION: 20.130 mm (> 18.000) MV EF SLOPE: 100 mm/s (70 - 150) EPSS: 0.3 cm MV E Victorino: 0.35 m/s MV DecT: 426 ms MV A Victorino: 0.75 m/s MV E/A Ratio: 0.47 RAP: 5.00 mmHg RVSP: 20.45 mmHg FINDINGS -------- Sinus rhythm. This was a technically adequate study. LV size, wall thickness and systolic function are normal, with an EF greater than 55%. The left eden tricular size is normal. The right ventricle is normal in size. The left atrial size is normal. The right atrial size is normal. The aortic valve is trileaflet, and appears structurally normal. No aortic stenosis or regurgitation. Mild mitral annular calcification present. Mild mitral regurgitation is present. Mild tricuspid regurgitation present. Right ventricular systolic pressure is normal at < 35 mmHg. There is no evidence of pulmonary hypertension. There is no pulmonic regurgitation present. The aortic root size is normal. There is no pericardial effusion. CONCLUSIONS -------- 1. Sinus rhythm. 2. This was a technically adequate study. 3. LV size, wall thickness and systolic function are normal, with an EF greater than 55%. 4. The left ventricular size is normal. 5. The right ventricle is normal in size. 6. The left atrial size is normal. 7. The right atrial size is normal. 8. The aortic valve is trileaflet, and appears structurally normal. No aortic stenosis or regurgitati on. 9. Mild mitral annular calcification present. 10. Mild mitral regurgitation is present. 11. Mild tricuspid regurgitation present. 12. Right ventricular systolic pressure is normal at < 35 mmHg. 13. There is no evidence of pulmonary hypertension. 14. There is no pulmonic regurgitation present. 15. The aortic root size is normal. 16. There is no pericardial effusion. BURNISHING MACHINE OPERATOR: Mahogany Isaacs RDCS
== END | disposition home or self-care (01) ==
LOC: RADECHMAIN 14:38
PROVIDERS: ATTEND Internal Medicine
DX: I08.1 Rheumatic disorders of both mitral and tricuspid valves (principal); I65.23 Occlusion and stenosis of bilateral carotid arteries
CPT/HCPCS: 93306; 93880

== ENCOUNTER → 2020-05-10 | Outpatient (CLI) | payer MEDICARE ==
--- NOTE | 2020-05-10 07:47 | US ---
EXAMINATION TYPE: US abdomen complete DATE OF EXAM: 05/10/2020 COMPARISON: NONE CLINICAL HISTORY: N18.2 Chronic kidney disease stage 2. CKD 3 EXAM MEASUREMENTS: Liver Length: 13.3 cm Gallbladder Wall: .2 cm CBD: .4 cm Spleen: 9.1 cm Right Kidney: 9.4 x 3.8 x 4.2 cm Left Kidney: 9.5 x 3.6 x 3.1 cm Pancreas: Tail obscured by overlying bowel gas Liver: Increased attenuation Gallbladder: No stones seen Evidence for sonographic Oreilly's sign: No CBD: wnl Spleen: wnl Right Kidney: wnl Left Kidney: wnl Upper IVC: wnl Abd Aorta: wnl The liver is homogenous. The intrahepatic portion of the IVC and proximal abdominal aorta are within normal limits. There is no evidence of cholelithiasis. Common bile duct is unremarkable. The visu alized portions of the pancreas are homogenous. The spleen is unremarkable. Kidneys are symmetric a nd free of hydronephrosis. No renal lesions are seen. IMPRESSION: No distinct abnormality appreciated.
== END | disposition home or self-care (01) ==
LOC: RADUSWWP 07:00
PROVIDERS: ATTEND Internal Medicine
DX: N18.2 Chronic kidney disease, stage 2 (mild) (principal)
CPT/HCPCS: 76700

== ENCOUNTER → 2020-11-24 | Outpatient (CLI) | payer MEDICARE ==
--- NOTE | 2020-11-27 08:25 | MM ---
Reason for exam: screening (asymptomatic). Last mammogram was performed 2 years and 1 month ago. History: Patient is postmenopausal. Family history of premenopausal breast cancer in sister. Benign cyst aspiration, March 15, 1997. Physical Findings: A clinical breast exam by your physician is recommended on an annual basis and results should be correlated with mammographic findings. MG 3D Screening Mammo W/Cad Bilateral CC and MLO view(s) were taken. Prior study comparison: October 23, 2018, bilateral MG 3d screening mammo w/cad. October 22, 2017, bilateral MG 3d screening mammo w/cad. The breast tissue is heterogeneously dense. This may lower the sensitivity of mammography. Finding: There is a 8 mm obscured oval density in the upper outer quadrant, middle position of the right breast on CC 19/62 and MLO 27/79. There is no discrete abnormality. ASSESSMENT: Incomplete: need additional imaging evaluation, BI-RAD 0 RECOMMENDATION: Ultrasound of the right breast. [facility] will attempt to contact patient to return for ultrasound.
== END | disposition home or self-care (01) ==
LOC: RADMAMWWP 08:37
PROVIDERS: ATTEND Internal Medicine
DX: Z12.31 Encounter for screening mammogram for malignant neoplasm of breast (principal); Z78.0 Asymptomatic menopausal state; Z80.3 Family history of malignant neoplasm of breast
CPT/HCPCS: 77063; 77067

== ENCOUNTER → 2020-12-11 | Outpatient (CLI) | payer MEDICARE ==
--- NOTE | 2020-12-11 07:29 | USB ---
EXAMINATION TYPE: US breast workup limited RT DATE OF EXAM: 12/11/2020 COMPARISON: Mammogram 11/24/2020 CLINICAL HISTORY: R92.8 abn mammogram. Findings: Right breast was scanned with ultrasound from 9-12 o'clock. In the right breast at 11:00, there is a 1.0 x 0.5 x 0.8 cm simple cyst which corresponds well in size, location and morphology to the asymmet ry seen on mammogram and is benign. IMPRESSION: Simple cyst corresponds to the mammographic density. BI-RADS 2, benign. Recommendation: Annual screening mammogram is recommended.
== END | disposition home or self-care (01) ==
LOC: RADUSWWP 06:49
PROVIDERS: ATTEND Internal Medicine
DX: N60.01 Solitary cyst of right breast (principal)

== ENCOUNTER → 2023-12-12 | Outpatient (CLI) | payer MEDICARE ==
--- NOTE | 2023-12-12 11:50 | CA ---
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 18 - 58 / 22 - 52 cm??? LA Volume Index 39.2 cm???/m??? 16 - 28 cm???/m??? Ascending Aorta Diameter 3.3 cm DOPPLER AV Peak Velocity 97.2 cm/s AV Peak Gradient 3.8 mmHg AV Mean Velocity 69.1 cm/s AV Mean Gradient 2.1 mmHg AV Velocity Time Integral 24.1 cm LVOT Peak Velocity 65.0 cm/s LVOT Peak Gradient 1.7 mmHg LVOT Velocity Time Integral 15.7 cm LVOT Stroke Volume 63.8 cm??? LVOT Stroke Volume Index 32.6 ml/m??? LVOT Cardiac Index 1919.2 cm???/min???m??? AV Area Cont Eq vti 2.7 cm??? AV Area Cont Eq pk 2.7 cm??? MV Area PHT 2.9 cm??? Mitral E Point Velocity 43.4 cm/s Mitral A Point Velocity 63.3 cm/s Mitral E to A Ratio 0.7 MV Deceleration Time 260.1 ms TR Peak Velocity 226.3 cm/s TR Peak Gradient 20.5 mmHg Right Atrial Pressure 5.0 mmHg Pulmonary Artery Systolic Pressu 25.5 mmHg Right Ventricular Systolic Press 25.5 mmHg PV Peak Velocity 53.2 cm/s PV Peak Gradient 1.1 mmHg FINDINGS Left Ventricle Left ventricular ejection fraction is estimated at 50-55 %. Mildly increased septal wall thickness. Mildly increased posterior wall thickness. Left ventricular cavity size normal. No obvious regional wall motion abnormalities. Right Ventricle Normal right ventricular size and function. Right ventricular systolic pressure within normal limits. Right Atrium Normal right atrial size. Left Atrium Moderately increased left atrial volume. Mildly increased left atrial area. Mitral Valve Mitral valve thickened. Overriding of the anterior mitral valve leaflet.. No mitral stenosis. [id number]-osprfedx mitral regurgitation. Aortic Valve Trileaflet aortic valve. No aortic valve stenosis or regurgitation. Tricuspid Valve Structurally normal tricuspid valve. No tricuspid stenosis. [id number]-[id number] tricuspid regurgitation. Pulmonic Valve Structurally normal pulmonic valve. No pulmonic stenosis. Mild pulmonic regurgitation. Pericardium No pericardial effusion. Aorta Normal size aortic root and proximal ascending aorta. CONCLUSIONS Normal LV systolic function Mitral valve prolapse with mild to moderate mitral regurgitation Normal pulmonary artery systolic pressure Previewed by: Dr. Al Jesus MD (Electronically Signed) Final Date: 12 December 2023 11:49
== END | disposition home or self-care (01) ==
LOC: RADECHMAIN 07:47
PROVIDERS: ATTEND Internal Medicine
DX: I34.0 Nonrheumatic mitral (valve) insufficiency (principal); I25.10 Atherosclerotic heart disease of native coronary artery without angina pectoris
CPT/HCPCS: 93306

== ENCOUNTER → 2023-12-22 | Outpatient (CLI) | payer MEDICARE ==
--- NOTE | 2023-12-22 12:14 | US ---
EXAMINATION TYPE: US carotid duplex BILAT DATE OF EXAM: 12/22/2023 US 04/07/2019 CLINICAL INDICATION: Female, 78 years old with history of I65.23 carotid stenosis bilateral; Hx hyper tension, hyperlipidemia. TECHNIQUE: Carotid duplex ultrasound examination. Indirect Doppler criteria was utilized. FINDINGS: EXAM MEASUREMENTS: RIGHT: Peak Systolic Velocity (PSV) cm/sec ----- Right CCA: 61.6 ----- Right ICA: 172.7 ----- Right ECA: 59.7 ICA/CCA ratio: 2.8 RIGHT: End Diastole cm/sec ----- Right CCA: 13.6 ----- Right ICA: 42.6 ----- Right ECA: 0.0 LEFT: Peak Systolic Velocity (PSV) cm/sec ----- Left CCA: 81.2 ----- Left ICA: 94.4 ----- Left ECA: 66.9 ICA/CCA ratio: 1.2 LEFT: End Diastole cm/sec ----- Left CCA: 16.4 ----- Left ICA: 27.4 ----- Left ECA: 8.7 VERTEBRALS (direction of flow): Right Vertebral: Antegrade Left Vertebral: Antegrade Rhythm: Normal SLEEP MANAGER NOTES: Elevated velocity within right distal ICA. Minimal plaque seen within bilateral bulbs. IMPRESSION: 1. Less than 50% stenosis of the left carotid bifurcation. 2. 50-69% stenosis of the right carotid bifurcation. Criteria for Assigning % of Stenosis / Diameter reduction (Estimation based on the indirect measurements of the internal carotid artery velocities (ICA PSV). 1. Normal (no stenosis)=ICA PSV < 125 cm/s: ratio < 2.0: ICA EDV<40 cm/s. 2. Less than 50% stenosis=ICA PSV < 125 cm/s: ratio < 2.0: ICA EDV<40 cm/s. 3. 50 to 69% stenosis=ICA PSV of 125 to 230 cm/s: ration 2.0 ? 4.0: ICA EDV 40-100 cm/s. 4. Greater than 70% stenosis to near occlusion= ICA PSV > 230 cm/s: ratio > 4.0: ICA EDV > 100 cm/s. 5. Near occlusion= ICA PSV velocities may be low or undetectable: variable ratio and ICA EDV. 6. Total occlusion=unable to detect flow.
--- NOTE | 2023-12-22 12:15 | US ---
EXAMINATION TYPE: US abdomen complete DATE OF EXAM: 12/22/2023 COMPARISON: US 05/10/2020 CLINICAL INDICATION: Female, 78 years old with history of R79.89 elevated LFT'S; Elevated LFTs TECHNIQUE: Multiple sonographic images of the abdomen are obtained. FINDINGS: EXAM MEASUREMENTS: Liver Length: 12.7 cm Gallbladder Wall: 0.21 cm CBD: 0.38 cm Spleen: 10.2 cm Right Kidney: 8.9 x 4.8 x 4.1 cm Left Kidney: 9.4 x 4.3 x 4.0 cm LOCKSTITCH LINING SETTER NOTES: Exam is limited due to gas. Pancreas: Not well visualized. Liver: Appears coarse in echotexture with increased echogenicity. Gallbladder: *Hyperechoic focus with posterior shadowing seen within the neck: 1.1 x 1.1 x 0.8 cm. Evidence for sonographic Oreilly's sign: No CBD: Appears wnl Spleen: Appears wnl Right Kidney: No hydronephrosis or masses seen Left Kidney: No hydronephrosis or masses seen Upper IVC: Appears wnl Abd Aorta: Appears wnl, iliac arteries were obscured. IMPRESSION: 1. Hepatocellular disease with hepatic steatosis. No suspicious masses. 2. Cholelithiasis 3. No evidence for acute process.
== END | disposition home or self-care (01) ==
LOC: RADUSWWP 06:49
PROVIDERS: ATTEND Internal Medicine
DX: I65.23 Occlusion and stenosis of bilateral carotid arteries (principal); K76.0 Fatty (change of) liver, not elsewhere classified; K80.20 Calculus of gallbladder without cholecystitis without obstruction
CPT/HCPCS: 76700; 93880

== ENCOUNTER → 2024-03-11 | Outpatient (CLI) | payer MEDICARE ==
--- NOTE | 2024-03-22 11:39 | MM ---
Reason for Exam: Screening (asymptomatic). Last mammogram was performed 1 year(s) and 2 month(s) ago. Patient History: Menarche at age 14. First Full-Term at age 18. Left ovary removed at age 56. Right ovary removed at age 56. Hysterectomy at age 56. Postmenopausal. Benign Cyst Aspiration. Sister had breast cancer. Risk Values: Yisel 5 year model risk: 2.9%. NCI Lifetime model risk: 4.8%. Prior Study Comparison: 10/23/2018 Bilateral Screening Mammogram, [facility]. 11/24/2020 Bilateral Screening Mammogram, [facility]. 01/14/2023 Bilateral MG 3D screening mammo w/cad, [facility]. Tissue Density: There are scattered areas of fibroglandular density. Findings: Analyzed By CAD. Right breast: There is no suspicious group of microcalcifications or new suspicious mass. Benign-appearing calcifications right breast. Left breast: There is no suspicious group of microcalcifications or new suspicious mass. Benign-appearing calcifications left breast. Overall Assessment: Benign, BI-RAD 2 Management: Screening Mammogram of both breasts in [address] [facility] will attempt to contact patient to return for supplemental views and ultrasound if indicated. Patient should continue monthly self-breast exams. A clinical breast exam by your physician is recommended on an annual basis. This exam should not preclude additional follow-up of suspicious palpable abnormalities. Note on Yisel scores and lifetime risk: 1. A Yisel score greater than 3% is considered moderate risk. If this is the case, consider specialist referral to assess eligibility for a risk reducing agent. 2. If overall lifetime risk for the development of breast cancer is 20% or higher, the patient may qualify for future screening with alternating mammogram and breast MRI. [facility], , 03/22/2024 11:36 AM. Electronically signed and approved by: Vance Henderson DO
== END | disposition home or self-care (01) ==
LOC: RADMAMWWP 07:52
PROVIDERS: ATTEND Internal Medicine
DX: Z12.31 Encounter for screening mammogram for malignant neoplasm of breast
CPT/HCPCS: 77063; 77067

== ENCOUNTER → 2024-05-18 | Outpatient (CLI) | payer MEDICARE ==
--- NOTE | 2024-05-18 17:31 | BD ---
EXAMINATION TYPE: Axial Bone Density DATE OF EXAM: 05/18/2024 CLINICAL HISTORY: 79 years old Female. ICD-10 CODE: M85.851 Disorder of bone , Additional History: Height: 63.5 Weight: 196.7 FRAX RISK QUESTIONS: Alcohol (3 or more units per day): no Family History (Parent hip fracture): no Glucocorticoids (More than 3mos): no (Ex: prednisone, prednisolone, methylprednisolone, dexamethasone, and hydrocortisone). History of Fracture in Adulthood: no Secondary Osteoporosis: 1. Type 1 Diabetes: no 2. Hyperthyroidism: no 3. Menopause before 45: no 4. Malnutrition: no 5. Chronic liver disease: no Rheumatoid Arthritis: no Current Tobacco Use: no RISK FACTORS HISTORY OF: Surgery to Spine/Hip(right/left)/Wrist (right/left): no EXAM MEASUREMENTS: Bone mineral densitometry was performed using the [employer] System. Bone mineral density as measured about the Lumbar spine is: ----- L1-L4(G/cm2): 1.335 T Score Values are as follows: ----- L1: -0.1 ----- L2: 0.0 ----- L3: 2.1 ----- L4: 2.8 ----- L1-L4: 1.3 Z Score Values are as follows: ----- L1: 0.9 ----- L2: 1.0 ----- L3: 3.1 ----- L4: 3.8 ----- L1-L4: 2.3 Bone mineral density has: decreased -1.4 % since study of: 10.22.2017 Bone mineral density about the R hip (g/cm2): 0.966 Bone mineral density about the L hip (g/cm2): 0.817 T Score values are as follows: -----R Neck: -1.2 -----L Neck: -0.9 -----R Total: -0.3 -----L Total: 1.5 Z Score values are as follows: -----R Neck: 0.4 -----L Neck: 0.6 -----R Total: 1.0 -----L Total: -0.14 Bone mineral density has: decreased -5.3 % since study of: 5.2.2018 FRAX%s: The graph provided illustrates a 11.4% chance for a major osteoporotic fx and a 2.3% chance f or the hips probability for fx in 10 years time. IMPRESSION: Osteopenia (T Score between -2.5 and -1). There is slightly increased risk of fracture and the patient may be considered for treatment. Re-Screen 2-5 years. NOTE: T-SCORE=SD OF THE YOUNG ADULT MEAN. [facility], , 05/18/2024 5:29 PM
== END | disposition home or self-care (01) ==
LOC: RADBDWWP 13:18
PROVIDERS: ATTEND Internal Medicine
DX: M85.851 Other specified disorders of bone density and structure, right thigh (principal)
CPT/HCPCS: 77080